=== PATIENT | male | born 1980 ===

== ENCOUNTER 2017-07-26 15:01 | Emergency (ER) | payer OTHER ==
[2017-07-26 15:25] VITALS: BP 134/80; PULSE 106; RESP 18; TEMP 98.2; O2SAT 97
--- NOTE | 2017-07-26 16:01 | ED PDOC ---
HPI: Back Time Seen by Provider: 07/26/17 15:55 Chief Complaint (Nursing): Back Pain Chief Complaint (Provider): Back Pain History Per: Patient History/Exam Limitations: no limitations Onset/Duration Of Symptoms: Days (x2) Current Symptoms Are (Timing): Still Present Additional Complaint(s): 36 year old male with medical history of chronic back pain, presents to the emergency department with a complaint of lower back pain radiating to right knee worsen since last night. Patient reported previous back injury in 2011 which he treats with Percocet and Baclofen, prescribed by pain management doctors with last visit 3 weeks ago. Denied any new injuries. PMD: none provided Pain Management: Erik Ellington MD Past Medical History Reviewed: Historical Data, Nursing Documentation, Vital Signs Vital Signs: Last Vital Signs Temp 98.2 F 07/26/17 15:21 Pulse 106 H 07/26/17 15:21 Resp 18 07/26/17 15:21 BP 134/80 07/26/17 15:21 Pulse Ox 97 07/26/17 15:21 - Medical History PMH: Chronic Pain (back) - Surgical History Surgical History: No Surg Hx - Family History Family History: States: Unknown Family Hx - Social History Current smoker - smoking cessation education provided: No Alcohol: None Drugs: Denies - Home Medications Home Medications: Ambulatory Orders Medication Instructions Recorded Ciprofloxacin HCl [Cipro] 500 mg PO BID #20 tab 11/19/16 Dicyclomine [Dicyclomine HCl] 10 mg PO Q8 #10 cap 11/19/16 Metronidazole [Flagyl] 500 mg PO TID #30 tablet 11/19/16 Naproxen [Naprosyn] 500 mg PO BID PRN #30 tab 03/08/17 - Allergies Allergies/Adverse Reactions: Allergies Allergy/AdvReac Type Severity Reaction Status Date / Time Penicillins AdvReac ANAPHYLAXIS Verified 11/19/16 12:57 Review of Systems ROS Statement: Except As Marked, All Systems Reviewed And Found Negative Musculoskeletal: Positive for: Back Pain (lower), Leg Pain (right-sided) Physical Exam - Reviewed Nursing Documentation Reviewed: Yes Vital Signs Reviewed: Yes - Physical Exam Appears: Positive for: Non-toxic, No Acute Distress Skin: Positive for: Normal Color Pulses-Dorsalis Pedis (L): 2+ Pulses-Dorsalis Pedis (R): 2+ Pulses-Post. Tibialis (L): 2+ Pulses-Post. Tibialis (R): 2+ Extremity: Positive for: Normal ROM (lower bilaterally with sensation intact), Other (3/5 right foot strength and 5/5 left foot strength). Negative for: Tenderness, Deformity (left leg) Neurologic/Psych: Positive for: Alert, Oriented - ECG O2 Sat by Pulse Oximetry: 97 (RA) Pulse Ox Interpretation: Normal Medical Decision Making Medical Decision Making: Initial Impression: Sciatica Initial Plan: * Toradol 60mg IM * Tylenol 650mg PO * Decadron 10mg IM Time: 1640 --Upon provider evaluation, patient is medically stable and requires no further treatment in the ED at this time. Patient will be discharged home. Counseling was provided and all questions were answered regarding diagnosis and need for follow up with [facility]. There is agreement to discharge plan. Return if symptoms persist or worsen. Clinical Impression: Sciatica Scribe Attestation: Documented by Kamila Ahn, acting as a scribe for Marvel Castillo PA-C. Provider Scribe Attestation: All medical record entries made by the Scribe were at my direction and personally dictated by me. I have reviewed the chart and agree that the record accurately reflects my personal performance of the history, physical exam, medical decision making, and the department course for this patient. I have also personally directed, reviewed, and agree with the discharge instructions and disposition. Disposition - Clinical Impression Clinical Impression: Sciatic leg pain - Patient ED Disposition Is Patient to be Admitted: No Comment: Pt is and will continue to be followed by [facility] in [place] for his chronic pain Doctor Will See Patient In The: Office Counseled Patient/Family Regarding: Diagnosis, Need For Followup - Disposition Disposition: Routine/Home Disposition Time: 16:40 Condition: STABLE Instructions: Sciatica, Sciatica (DC), Sciatica Exercises Forms: [facility] ([place]ux[place])
== END 2017-07-26 16:45 | disposition home or self-care (01) ==
LOC: H.ER 15:01
DX: M54.31 Sciatica, right side (principal); G89.29 Other chronic pain; Z88.0 Allergy status to penicillin
CPT/HCPCS: 96372; 99281; J1100; J1885

== ENCOUNTER 2017-12-19 15:42 | Emergency (ER) | payer OTHER, SELFPAY ==
[2017-12-19 16:03] VITALS: PULSE 71; RESP 18; TEMP 98.6; O2SAT 96
--- NOTE | 2017-12-19 16:26 | ED PDOC ---
Lower Extremity Pain/Injury Time Seen by Provider: 12/19/17 15:56 Chief Complaint (Nursing): Lower Extremity Problem/Injury Chief Complaint (Provider): Knee Pain History Per: Patient Additional Complaint(s): 37 yo male, PMH of Right ACL tear, presents to ED c/o recurrent episode of rt hip and right knee pain. Pt repprts he tore his ACL from an injury at work 3 years ago. Pt is scheduled to see an orthopod in 2 weeks. Pt denies recent trauma or injury . No medications taken to alleviate symptoms thus far. Past Medical History Reviewed: Nursing Documentation, Vital Signs Vital Signs: Last Vital Signs Temp 98.6 F 12/19/17 15:58 Pulse 71 12/19/17 15:58 Resp 18 12/19/17 15:58 BP Pulse Ox 96 12/19/17 15:58 - Medical History PMH: Back Problems (from fall of 2011), Chronic Pain (back) - Family History Family History: States: Unknown Family Hx - Living Arrangements Living Arrangements: With Family - Social History Current smoker - smoking cessation education provided: No Alcohol: Social Drugs: Denies - Home Medications Home Medications: Ambulatory Orders Medication Instructions Recorded Ciprofloxacin HCl [Cipro] 500 mg PO BID #20 tab 11/19/16 Dicyclomine [Dicyclomine HCl] 10 mg PO Q8 #10 cap 11/19/16 Metronidazole [Flagyl] 500 mg PO TID #30 tablet 11/19/16 Naproxen [Naprosyn] 500 mg PO BID PRN #30 tab 03/08/17 Ibuprofen [Motrin] 600 mg PO Q6 #20 tab 12/19/17 oxyCODONE/Acetaminophen [Percocet 1 ea PO Q6 PRN #5 tab 12/19/17 5/325 mg Tab] - Allergies Allergies/Adverse Reactions: Allergies Allergy/AdvReac Type Severity Reaction Status Date / Time acetaminophen [From [place]] AdvReac SHORTNESS Verified 12/19/17 16:04 OF BREATH hydrocodone [From [place]] AdvReac SHORTNESS Verified 12/19/17 16:04 OF BREATH Penicillins AdvReac ANAPHYLAXIS Verified 11/19/16 12:57 Review of Systems ROS Statement: Except As Marked, All Systems Reviewed And Found Negative Musculoskeletal: Positive for: Leg Pain Physical Exam - Reviewed Nursing Documentation Reviewed: Yes Vital Signs Reviewed: Yes - Physical Exam Appears: Positive for: Well, Non-toxic, No Acute Distress Head Exam: Positive for: ATRAUMATIC, NORMAL INSPECTION, NORMOCEPHALIC Skin: Positive for: Normal Color, Warm, DRY Eye Exam: Positive for: EOMI, Normal appearance, PERRL ENT: Positive for: Normal ENT Inspection Neck: Positive for: Normal, Painless ROM Cardiovascular/Chest: Positive for: Regular Rate, Rhythm Respiratory: Positive for: CNT, Normal Breath Sounds Gastrointestinal/Abdominal: Positive for: Normal Exam, Soft Back: Positive for: Normal Inspection Extremity: Positive for: Normal ROM. Negative for: Tenderness, Deformity, Swelling Neurologic/Psych: Positive for: Alert, Oriented - ECG O2 Sat by Pulse Oximetry: 96 Medical Decision Making Medical Decision Making: Time: 16:27 Initial Plan: --Motrin 600 mg PO --Rt knee XR --Rt hip XR 17:03 Knee XR FINDINGS: BONES: Normal. No fracture. JOINTS: Normal. No osteoarthritis. JOINT EFFUSION: None. OTHER FINDINGS: None. IMPRESSION: Normal radiographs of the right knee. 17:03 Hip XR FINDINGS: BONES: No fracture. Bilateral superolateral hip joint space narrowing with mild acetabular spurring. Actually this spurring is more pronounced on the left side than symptomatic right hip JOINTS: Bilateral osteoarthrosis as above. SI joints and pubic symphysis unremarkable. SOFT TISSUES: Normal. OTHER FINDINGS: None. IMPRESSION: No fracture. Bilateral hip arthrosis -as above Disposition - Clinical Impression Clinical Impression: Hip pain, Hip arthrosis - Patient ED Disposition Is Patient to be Admitted: No - Disposition Disposition: Routine/Home Disposition Time: 17:41 Condition: STABLE Prescriptions: Ibuprofen [Motrin] 600 mg PO Q6 #20 tab oxyCODONE/Acetaminophen [Percocet 5/325 mg Tab] 1 ea PO Q6 PRN #5 tab PRN Reason: Pain, Severe (8-10) Instructions: Osteoarthritis (DC), Hip Pain (DC) Forms: [employer] ([place]) Print Language: LUX[place]BOURGISH
--- NOTE | 2017-12-19 17:05 | RAD ---
PROCEDURE: Right Hip Radiographs. HISTORY: pain COMPARISON: None. FINDINGS: BONES: No fracture. Bilateral superolateral hip joint space narrowing with mild acetabular spurring. Actually this spurring is more pronounced on the left side than symptomatic right hip JOINTS: Bilateral osteoarthrosis as above. SI joints and pubic symphysis unremarkable. SOFT TISSUES: Normal. OTHER FINDINGS: None. IMPRESSION: No fracture. Bilateral hip arthrosis -as above
--- NOTE | 2017-12-19 17:05 | RAD ---
Date of service: 12/19/2017 PROCEDURE: Right Knee Radiographs. HISTORY: pain COMPARISON: None. FINDINGS: BONES: Normal. No fracture. JOINTS: Normal. No osteoarthritis. JOINT EFFUSION: None. OTHER FINDINGS: None. IMPRESSION: Normal radiographs of the right knee.
== END 2017-12-19 17:52 | disposition home or self-care (01) ==
LOC: H.ER 15:42
DX: M25.551 Pain in right hip (principal); G89.29 Other chronic pain; M16.0 Bilateral primary osteoarthritis of hip; Z88.0 Allergy status to penicillin
CPT/HCPCS: 73501; 73562; 96372; 99282; J2270

== ENCOUNTER 2018-01-22 22:16 | Emergency (ER) | payer OTHER ==
[2018-01-22 22:39] VITALS: TEMP 98.2
[2018-01-22 23:04] VITALS: RESP 16
--- NOTE | 2018-01-22 23:21 | ED PDOC ---
HPI: Chest Pain Time Seen by Provider: 01/22/18 22:53 Chief Complaint (Nursing): Shortness Of Breath Chief Complaint (Provider): chest pain History Per: Patient History/Exam Limitations: no limitations Onset/Duration Of Symptoms: Days (5) Current Symptoms Are (Timing): Still Present Additional History Per: Patient Additional Complaint(s): 37 y/o male presents for evaluation of persistent chest pain x 5 days. Patient states he feels like he has to take "deep breaths" due to the pain. Pain worsened when walking. Denies fever, cough, congestion, palpitations, abdominal pain, leg pain/swelling, recent travel. No medications taken for relief thus far. Past Medical History Reviewed: Historical Data, Nursing Documentation, Vital Signs Vital Signs: Last Vital Signs Temp 98.2 F 01/22/18 22:36 Pulse 71 01/23/18 00:50 Resp 16 01/23/18 00:50 BP 118/73 01/23/18 00:50 Pulse Ox 96 01/23/18 00:50 - Medical History PMH: Back Problems (from fall of 2011), Depression, Chronic Pain (back) Other PMH: ADHD (on adderall) - Surgical History Other surgeries: left ACL repair - Family History Family History: States: Unknown Family Hx - Home Medications Home Medications: Ambulatory Orders Medication Instructions Recorded Ciprofloxacin HCl [Cipro] 500 mg PO BID #20 tab 11/19/16 Dicyclomine [Dicyclomine HCl] 10 mg PO Q8 #10 cap 11/19/16 Metronidazole [Flagyl] 500 mg PO TID #30 tablet 11/19/16 Naproxen [Naprosyn] 500 mg PO BID PRN #30 tab 03/08/17 Ibuprofen [Motrin] 600 mg PO Q6 #20 tab 12/19/17 oxyCODONE/Acetaminophen [Percocet 1 ea PO Q6 PRN #5 tab 12/19/17 5/325 mg Tab] - Allergies Allergies/Adverse Reactions: Allergies Allergy/AdvReac Type Severity Reaction Status Date / Time acetaminophen [From [place]] AdvReac SHORTNESS Verified 01/22/18 22:36 OF BREATH hydrocodone [From [place]] AdvReac SHORTNESS Verified 01/22/18 22:36 OF BREATH Penicillins AdvReac ANAPHYLAXIS Verified 01/22/18 22:36 CARA Risk Score for UA/NSTEMI - CARA Risk Score Age > 64: NO 3 or more CAD Risk Factors: NO Known CAD (Stenosis greater than 50%): NO Aspirin use in past 7 days: NO Severe Angina: NO EKG ST changes greater than 0.5mm: NO Positive Cardiac Marker: NO CARA Score: 0 Risk %: 5% Review of Systems ROS Statement: Except As Marked, All Systems Reviewed And Found Negative Cardiovascular: Positive for: Chest Pain Respiratory: Positive for: Shortness of Breath Physical Exam - Reviewed Nursing Documentation Reviewed: Yes Vital Signs Reviewed: Yes - Physical Exam Appears: Positive for: Well, Non-toxic, No Acute Distress Head Exam: Positive for: ATRAUMATIC, NORMAL INSPECTION, NORMOCEPHALIC Skin: Positive for: Normal Color Eye Exam: Positive for: Normal appearance ENT: Positive for: Normal ENT Inspection Cardiovascular/Chest: Positive for: Regular Rate, Rhythm. Negative for: Chest Non Tender (tender to palpate anterior/left chest wall; no ecchymosis, crepitus , edema noted) Respiratory: Positive for: Normal Breath Sounds Gastrointestinal/Abdominal: Positive for: Normal Exam Back: Positive for: Normal Inspection Extremity: Positive for: Normal ROM Neurologic/Psych: Positive for: Alert, Oriented (x3) - Laboratory Results Result Diagrams: 01/23/18 00:47 01/23/18 00:47 - ECG ECG: Positive for: Viewed By Me (reviewed by ED attending) ECG Rhythm: Positive for: Sinus Rhythm O2 Sat by Pulse Oximetry: 96 - Radiology X-Ray: Viewed By Me X-Ray Interpretation: No Acute Disease - Progress ED Course And Treament: labs, ekg, chest xray, IV toradol Patient educated on findings, discharged with instructions to follow up PMD 2-3 days Advised ibuprofen PRN pain Return precautions given Disposition - Clinical Impression Clinical Impression: Chest pain - Patient ED Disposition Is Patient to be Admitted: No Counseled Patient/Family Regarding: Studies Performed, Diagnosis, Need For Followup - Disposition Referrals: [facility] [Outside] Disposition: Routine/Home Disposition Time: 02:33 Condition: IMPROVED Instructions: Chest Pain
[2018-01-23 01:16] LABS: BASO % 0.8 % (0.0-2.0); EOS # 0.1 K/uL (0.0-0.7); EOS % 2.2 % (0.0-4.0); HEMOGLOBIN 14.6 g/dL (12.0-18.0); LYMPH # 2.6 K/uL (1.0-4.3); LYMPH % 41.7 % (20.0-40.0); MEAN CELL VOLUME 84.8 fl (80.0-94.0); MEAN CORPUSCULAR HGB CONC 34.1 g/dL (33.0-37.0); MEAN PLATELET VOLUME 8.3 fl (7.2-11.7); MONO # 0.5 K/uL (0.0-0.8); MONO % 8.9 % (0.0-10.0); NEUT # 2.9 K/uL (1.8-7.0); NEUT % 46.4 % (50.0-75.0); NRBC % 0.1 % (0.0-0.0); RBC 5.06 Mil/uL (4.40-5.90); RED CELL DISTRIBUTION WIDTH 13.4 % (11.5-14.5); WHITE BLOOD COUNT 6.2 K/uL (4.8-10.8)
[2018-01-23 01:31] LABS: ALB/GLOB RATIO 1.6 (1.0-2.1); ALBUMIN 4.1 g/dL (3.5-5.0); ALT/SGPT 107 U/L (21-72); AST/SGOT 50 U/L (17-59); BLOOD UREA NITROGEN 17 mg/dl (9-20); CALCIUM 9.4 mg/dL (8.4-10.2); GFR NON-AFRICAN AMERICAN > 60
[2018-01-23 02:28] LABS: BARBITURATES, UR NEGATIVE (NEGATIVE); BENZODIAZEPINES, UR NEGATIVE (NEGATIVE); OPIATES, UR NEGATIVE (NEGATIVE); PHENCYCLIDINE, UR NEGATIVE (NEGATIVE)
[2018-01-23] MEDS ORDERED: Potassium Chloride 20 mEq ER Tab PO ONE ×2 (02:31→02:44)
[2018-01-23 02:46] VITALS: BP 113/71; PULSE 68; O2SAT 97
== END 2018-01-23 02:45 | disposition home or self-care (01) ==
LOC: H.ER 22:16
DX: R07.9 Chest pain, unspecified (principal)
CPT/HCPCS: 71046; 80053; 80324; 80345; 80346; 80349; 80353; 80358; 80361; 83992; 84484; 85025; 99283; J1885

== ENCOUNTER 2018-04-15 22:54 | Emergency (ER) | payer OTHER, SELFPAY ==
[2018-04-15 23:12] VITALS: TEMP 97.9; O2SAT 97
[2018-04-15 23:53] LABS: BASO # 0.1 K/uL (0.0-0.2); EOS # 0.2 K/uL (0.0-0.7); EOS % 2.6 % (0.0-4.0); HEMOGLOBIN 15.3 g/dL (12.0-18.0); LYMPH # 2.5 K/uL (1.0-4.3); LYMPH % 38.5 % (20.0-40.0); MEAN CELL VOLUME 85.7 fl (80.0-94.0); MEAN CORPUSCULAR HEMOGLOBIN 30.9 pg (27.0-31.0); MEAN PLATELET VOLUME 7.9 fl (7.2-11.7); MONO # 0.4 K/uL (0.0-0.8); MONO % 6.1 % (0.0-10.0); NEUT # 3.4 K/uL (1.8-7.0); NEUT % 51.8 % (50.0-75.0); NRBC % 0.1 % (0.0-0.0); RBC 4.94 Mil/uL (4.40-5.90); RED CELL DISTRIBUTION WIDTH 13.3 % (11.5-14.5); WHITE BLOOD COUNT 6.6 K/uL (4.8-10.8)
--- NOTE | 2018-04-15 23:55 | ED PDOC ---
HPI: Male Pain Time Seen by Provider: 04/15/18 23:15 Chief Complaint (Nursing): Groin Pain Chief Complaint (Provider): Groin Pain History Per: Patient History/Exam Limitations: no limitations Onset/Duration Of Symptoms: Days (x2) Current Symptoms Are (Timing): Still Present Quality Of Discomfort: "Pain" Associated Symptoms: Urinary Symptoms. denies: Fever, Chills Additional Complaint(s): 37 year old male with no significant past medical history presents to the ER with the right sided groin pain onset 2 days. Patient repots he felt some swelling in his right groin with associated pain on urination, but denies fever, chills, or injury. He states the area is sensitive to touch. Patient is taking Naproxen for pain that he was given for a knee injury a few weeks ago. PMD: Clinic Past Medical History Reviewed: Historical Data, Nursing Documentation, Vital Signs Vital Signs: Last Vital Signs Temp 97.9 F 04/15/18 23:10 Pulse 72 04/15/18 23:10 Resp 16 04/15/18 23:10 BP 145/82 04/15/18 23:10 Pulse Ox 97 04/15/18 23:10 - Medical History PMH: Back Problems (from fall of 2011), Depression, Chronic Pain (back) - Surgical History Surgical History: No Surg Hx - Family History Family History: States: Unknown Family Hx - Social History Current smoker - smoking cessation education provided: No Ex-Smoker (has not smoked in the last 12 months): No Alcohol: None Drugs: Denies - Home Medications Home Medications: Ambulatory Orders Medication Instructions Recorded Ciprofloxacin HCl [Cipro] 500 mg PO BID #20 tab 11/19/16 Dicyclomine [Dicyclomine HCl] 10 mg PO Q8 #10 cap 11/19/16 Metronidazole [Flagyl] 500 mg PO TID #30 tablet 11/19/16 Naproxen [Naprosyn] 500 mg PO BID PRN #30 tab 03/08/17 Ibuprofen [Motrin] 600 mg PO Q6 #20 tab 12/19/17 oxyCODONE/Acetaminophen [Percocet 1 ea PO Q6 PRN #5 tab 12/19/17 5/325 mg Tab] Ciprofloxacin/Ciprofloxa HCl 500 mg PO Q12 #14 tab 04/16/18 [Ciprofloxacin] - Allergies Allergies/Adverse Reactions: Allergies Allergy/AdvReac Type Severity Reaction Status Date / Time acetaminophen [From [place]] AdvReac SHORTNESS Verified 04/15/18 23:01 OF BREATH hydrocodone [From [place]] AdvReac SHORTNESS Verified 04/15/18 23:01 OF BREATH Penicillins AdvReac ANAPHYLAXIS Verified 04/15/18 23:01 Review of Systems ROS Statement: Except As Marked, All Systems Reviewed And Found Negative Genitourinary Male: Positive for: Dysuria, Other (groin pain and swelling) Physical Exam - Reviewed Nursing Documentation Reviewed: Yes Vital Signs Reviewed: Yes - Physical Exam Appears: Positive for: Non-toxic, No Acute Distress Head Exam: Positive for: ATRAUMATIC, NORMOCEPHALIC Skin: Positive for: Normal Color, Warm, Dry Eye Exam: Positive for: Normal appearance, EOMI, PERRL Neck: Positive for: Normal Cardiovascular/Chest: Positive for: Regular Rate, Rhythm. Negative for: Murmur Respiratory: Positive for: Normal Breath Sounds. Negative for: Respiratory Distress Gastrointestinal/Abdominal: Positive for: Normal Exam, Soft. Negative for: Tenderness Male Genital Exam: Positive for: other (Small inguinal lymph node tenderness on palpation, no overlying redness or warmth) Back: Positive for: Normal Inspection Extremity: Positive for: Normal ROM (upper and lower). Negative for: Pedal Edema, Deformity Neurologic/Psych: Positive for: Alert, Oriented (x3) - Laboratory Results Result Diagrams: 04/15/18 23:45 04/15/18 23:45 - ECG O2 Sat by Pulse Oximetry: 97 (RA) Pulse Ox Interpretation: Normal Medical Decision Making Medical Decision Making: Time: 2333 Initial Impression: 37 yo male with right groin pain and urinary symptoms Initial Plan: --labs --toradol Time: 132 --Labs reviewed, show no clinically significant abnormalities. Will treat for UTI given presenting symptoms, patient to follow up with PMD. Diagnosis lymphadenopathy and UTI. Scribe Attestation: Documented by Shavon Deng, acting as a scribe for Gael Lock MD Provider Scribe Attestation: All medical record entries made by the Scribe were at my direction and personally dictated by me. I have reviewed the chart and agree that the record accurately reflects my personal performance of the history, physical exam, medical decision making, and the department course for this patient. I have also personally directed, reviewed, and agree with the discharge instructions and disposition. Disposition - Clinical Impression Clinical Impression: Lymphadenopathy - Disposition Referrals: [facility] [Outside] Disposition Time: 01:33 Condition: STABLE Prescriptions: Ciprofloxacin/Ciprofloxa HCl [Ciprofloxacin] 500 mg PO Q12 #14 tab Forms: [employer] ([place]uan)
[2018-04-16 00:01] LABS: URINE BILIRUBIN NEGATIVE (NEGATIVE); URINE BLOOD SMALL (NEGATIVE); URINE CLARITY CLEAR (Clear); URINE COLOR YELLOW (YELLOW); URINE GLUCOSE (UA) NEG (Normal); URINE LEUKOCYTE ESTERASE NEG Leu/uL (Negative); URINE PROTEIN NEGATIVE (NEGATIVE); URINE UROBILINOGEN 0.2-1.0 mg/dL (0.2-1.0)
[2018-04-16 00:10] LABS: ALB/GLOB RATIO 1.4 (1.0-2.1); ALBUMIN 4.6 g/dL (3.5-5.0); ALT/SGPT 95 U/L (21-72); AST/SGOT 50 U/L (17-59); BLOOD UREA NITROGEN 12 mg/dl (9-20); GFR NON-AFRICAN AMERICAN > 60
[2018-04-16 01:41] VITALS: BP 125/66; PULSE 68; RESP 18
== END 2018-04-16 01:40 | disposition home or self-care (01) ==
LOC: H.ER 22:54
DX: R59.9 Enlarged lymph nodes, unspecified (principal); Z88.0 Allergy status to penicillin; N39.0 Urinary tract infection, site not specified
CPT/HCPCS: 80053; 81003; 85025; 99283; J1885

== ENCOUNTER 2018-10-10 18:53 | Emergency (ER) | payer SELFPAY ==
[2018-10-10 19:42] VITALS: BP 134/75; PULSE 93; RESP 16; TEMP 98.5; O2SAT 98
[2018-10-10 19:43] VITALS: BMI 26.5
--- NOTE | 2018-10-10 20:17 | ED PDOC ---
Lower Extremity Pain/Injury Time Seen by Provider: 10/10/18 19:50 Chief Complaint (Nursing): Lower Extremity Problem/Injury Chief Complaint (Provider): Lower Extremity Problem/Injury History Per: Patient History/Exam Limitations: no limitations Onset/Duration Of Symptoms: Days (x1) Current Symptoms Are (Timing): Still Present Additional Complaint(s): Patient is a 37 y/o male with a PMHx of back problems who presents to the ED for evaluation of right upper thigh and right lower back pain onset yesterday. Patient states he is currently in physical therapy after an ACL surgery 2 months ago. While doing squats he heard a pop and began feeling pain. Patient reports the pain is now exacerbated when sitting and walking. Patient indicated he took Tylenol last night and this morning with minimal relief. Patient claims the he has been icing his thigh with minimal relief. On a side note, patient also has complaints of having dry ejaculating for one month and wants to know why. He reports urinary frequency, but denies hematuria, dysuria, testicular pain or swelling, rashes or lesions. PCP: None Past Medical History Reviewed: Historical Data, Nursing Documentation, Vital Signs Vital Signs: Last Vital Signs Temp 98.5 F 10/10/18 19:42 Pulse 93 H 10/10/18 19:42 Resp 16 10/10/18 19:42 BP 134/75 10/10/18 19:42 Pulse Ox 98 10/10/18 19:42 Primary Care Provider: [facility] - Medical History PMH: Back Problems (from fall of 2011), Depression, Chronic Pain (back) - Surgical History Other surgeries: ACL repair - Family History Family History: States: Unknown Family Hx - Home Medications Home Medications: Ambulatory Orders Medication Instructions Recorded Ciprofloxacin HCl [Cipro] 500 mg PO BID #20 tab 11/19/16 Dicyclomine [Dicyclomine HCl] 10 mg PO Q8 #10 cap 11/19/16 Metronidazole [Flagyl] 500 mg PO TID #30 tablet 11/19/16 Naproxen [Naprosyn] 500 mg PO BID PRN #30 tab 03/08/17 Ibuprofen [Motrin] 600 mg PO Q6 #20 tab 12/19/17 oxyCODONE/Acetaminophen [Percocet 1 ea PO Q6 PRN #5 tab 12/19/17 5/325 mg Tab] Ciprofloxacin/Ciprofloxa HCl 500 mg PO Q12 #14 tab 04/16/18 [Ciprofloxacin] Cyclobenzaprine [Cyclobenzaprine 10 mg PO TID PRN #12 tab 10/10/18 HCl] Ibuprofen [Motrin Tab] 600 mg PO Q6 PRN #20 tab 10/10/18 - Allergies Allergies/Adverse Reactions: Allergies Allergy/AdvReac Type Severity Reaction Status Date / Time acetaminophen [From [place]] AdvReac SHORTNESS Verified 10/10/18 19:44 OF BREATH hydrocodone [From [place]] AdvReac SHORTNESS Verified 10/10/18 19:44 OF BREATH Penicillins AdvReac ANAPHYLAXIS Verified 10/10/18 19:44 Review of Systems ROS Statement: Except As Marked, All Systems Reviewed And Found Negative Genitourinary Male: Positive for: Frequency, Other (not myesha when ejaculating) Musculoskeletal: Positive for: Back Pain (lower right), Leg Pain (right) Physical Exam - Reviewed Nursing Documentation Reviewed: Yes Vital Signs Reviewed: Yes - Physical Exam Comments: GENERAL APPEARANCE: Patient is awake, alert, oriented x 3, in no acute distress. SKIN: Warm, dry; (-) cyanosis. BACK: (+) right lower lumbar tenderness. (-)midline tenderness (+)FROM LOWER EXTREMITY: (+) full range of motion with pain on flexion and extension of right leg. (+) posterior upper thigh and right gluteal muscle tenderness. dp 2+. cap refill less than 2 seconds. achilles tendon intact, (-)calf tenderness (- )swelling (-) Homans, (+) knee brace in place, strength 5/5 CARDIOVASCULAR: (+) distal pulse. NEUROLOGIC: (+) distal sensation. - ECG O2 Sat by Pulse Oximetry: 98 (RA) Pulse Ox Interpretation: Normal Medical Decision Making Medical Decision Making: Time: 2004 Impression: Right Lower Back and Thigh Pain Plan: Flexeril 10 mg PO Motrin 600 mg PO Hip Min 4V W/ Pelvis RT [Rad] UA Time: 2139 Normal xray. No fractures or dislocations. Informed pt he will be contacted if any discrepancies with radiology read UA wnl On re eval pt reports feeling better, pain improved, ROM intact with improved pain Discussed results, diagnosis, treatment, return precautions and f/u with pt who is understanding, in agreement and stable for dc Scribe Attestation: Documented by Kenyon Andrews, acting as a scribe for Asher Ardon PA-C. Provider Scribe Attestation: All medical record entries made by the Scribe were at my direction and personally dictated by me. I have reviewed the chart and agree that the record accurately reflects my personal performance of the history, physical exam, medical decision making, and the department course for this patient. I have also personally directed, reviewed, and agree with the discharge instructions and disposition. Disposition - Clinical Impression Clinical Impression: Muscle strain of right lower extremity - Patient ED Disposition Is Patient to be Admitted: No Counseled Patient/Family Regarding: Studies Performed, Diagnosis, Need For Followup, Rx Given - Disposition Referrals: [facility] [Outside] your, orthopedist [Other] Disposition: Routine/Home Disposition Time: 22:21 Condition: IMPROVED Additional Instructions: Thank you for letting us take care of you today. The emergency medical care you received today was directed at your acute symptoms. If you were prescribed any medication, please fill it and take as directed. Do not drink alcohol or drive when taking flexeril. Rest, ice and elevate your leg. It may take several days for your symptoms to resolve. Return to the Emergency Department if your symptoms worsen, do not improve, or if you have any other problems. Please contact your doctor in 2 days for re-evaluation and follow up / or call one of the physicians/clinics you have been referred to that are listed on the Patient Visit Information form that is included in your discharge packet. Bring any paperwork you were given at discharge with you along with any medications you are taking to your follow up visit. Our treatment cannot replace ongoing medical care by a primary care provider (PCP) outside of the emergency department. Prescriptions: Cyclobenzaprine [Cyclobenzaprine HCl] 10 mg PO TID PRN #12 tab PRN Reason: muscle relaxation Ibuprofen [Motrin Tab] 600 mg PO Q6 PRN #20 tab PRN Reason: Pain, Moderate (4-7) Instructions: Muscle Strain (DC), Lower Extremity Muscle Strain Forms: [facility] (Bulgarian) Print Language: MALTESE - POA Present On Arrival: None
[2018-10-10 21:43] LABS: URINE BACTERIA RARE (<OCC); URINE BILIRUBIN NEGATIVE (NEGATIVE); URINE BLOOD NEGATIVE (NEGATIVE); URINE CLARITY CLEAR (Clear); URINE COLOR YELLOW (YELLOW); URINE GLUCOSE (UA) NEG (NEGATIVE); URINE LEUKOCYTE ESTERASE NEG Leu/uL (Negative); URINE PROTEIN NEGATIVE (NEGATIVE); URINE UROBILINOGEN 0.2-1.0 mg/dL (0.2-1.0)
[2018-10-10 21:54] LABS: SQUAMOUS EPITHIAL 2 /hpf (0-5)
--- NOTE | 2018-10-11 10:53 | RAD ---
Date of service: 10/10/2018 PROCEDURE: Pelvis and right hip HISTORY: injury to thigh COMPARISON: None TECHNIQUE: Three views. FINDINGS: There are no osseous abnormalities to suggest fracture. The pelvic ring is intact. Preserved femoral-acetabular relationship. IMPRESSION: Negative study
== END 2018-10-10 22:41 | disposition home or self-care (01) ==
LOC: H.ER 18:53
DX: S76.911A Strain of unspecified muscles, fascia and tendons at thigh level, right thigh, initial encounter (principal); G89.29 Other chronic pain; Z86.59 Personal history of other mental and behavioral disorders; Z88.0 Allergy status to penicillin; Z88.5 Allergy status to narcotic agent